=== PATIENT | male | born 1965 | race Hispanic/Latino ===

== ENCOUNTER → 2024-02-26 | Outpatient (CLI) | payer OTHER ==
--- NOTE | 2024-02-26 16:36 | HMCIMG ---
EXAM: LUMBAR SPINE 2-3VWS REASON: BACK PAIN. COMPARISON: None. TECHNIQUE: 3 views of the lumbar spine were obtained. FINDINGS: There is normal appearance of the lumbar vertebral bodies. Disc interspace heights are preserved. Alignment is normal. There are moderate degenerative changes in the facets at L4-5 and L5-S1. There are no visible fractures. Soft tissues appear unremarkable. IMPRESSION: 1. Mild to moderate degenerative changes in the facets. 2. Otherwise normal exam.
== END | disposition home or self-care (01) ==
LOC: RAH 16:00
PROVIDERS: ATTEND Internal Medicine
DX: M47.817 Spondylosis without myelopathy or radiculopathy, lumbosacral region (principal); M54.50 Low back pain, unspecified
CPT/HCPCS: 72100